=== PATIENT | female | born 1965 | race Asian ===

== ENCOUNTER 2019-05-11 21:37 | Emergency (ER) | payer SELFPAY, OTHER ==
[2019-05-12] MEDS: SOD CHLORIDE 0.9% 100 ML (01:12)
[2019-05-12] MEDS: IOHEXOL 300MG/ML 150 ML BTL (01:12)
[2019-05-12] MEDS: ACETAMINOPHEN 325 MG TAB PO (01:59)
[2019-05-12] MEDS: SOD CHLORIDE 0.9% 1,000 ML IV (01:59)
[2019-05-12] MEDS: KETOROLAC 15 MG INJ IV (01:59)
== END 2019-05-12 03:19 | disposition home or self-care (01) ==
LOC: E/R 05-12 03:19
DX: S20.212A Contusion of left front wall of thorax, initial encounter (principal); S30.1XXA Contusion of abdominal wall, initial encounter; S09.90XA Unspecified injury of head, initial encounter; S60.222A Contusion of left hand, initial encounter; S60.211A Contusion of right wrist, initial encounter; E04.1 Nontoxic single thyroid nodule; I10 Essential (primary) hypertension; K57.30 Diverticulosis of large intestine without perforation or abscess without bleeding; V43.52XA Car driver injured in collision with other type car in traffic accident, initial encounter
CPT/HCPCS: 70450; 71260; 72125; 73110-RT; 73130-LT; 74177; 80053; 80307; 83690; 85025; 85610; 85730; 86850; 86900; 86901; 96374; 99285-25